=== PATIENT | female | born 1980 | race Two or more races ===

== ENCOUNTER 2020-10-10 06:24 | Inpatient (IN) ==
[2020-10-10] MEDS ORDERED: D5 1/2 NS 1000 ML 1,000 ML IV ONE (06:36)
[2020-10-10] MEDS ORDERED: BETADINE SOLN ONE (06:36)
[2020-10-10] MEDS ORDERED: PITOCIN ONE (06:36)
[2020-10-10] MEDS ORDERED: D5 1/2 NS 1L W PITOCIN 20 UNITS/L 20 UNITS/1,000 ML BAG IV ONE (06:37)
[2020-10-10] MEDS ORDERED: D5LR 1L W PITOCIN 10 UNITS/L 10 UNITS/1,000 ML BAG IV ONE (06:37)
--- NOTE | 2020-10-10 07:08 | DR.OB ---
OB Quick Note - Assessment/Plan Assessment/Plan: L&D 10/10/20 at 7:00am S-No complaint. O-Afebrile,VSS DXL=585 with good LTV, +accel, no decel. CTX=occasional,mild CVX=1cm/50%/-1/VTX AROM with clear fluid. IUPC and FSE placed. A-IUP at 38 6/7 weeks for induction Oligohydramnios P-Begin pitocin induction Anticipate
[2020-10-10] MEDS ORDERED: STADOL INJ IVP PRN (07:41)
[2020-10-10] MEDS ORDERED: PHENERGAN INJ 25 MG IM PRN ×2 (07:41→14:58)
[2020-10-10] MEDS ORDERED: NUBAIN INJ 200 MG VIAL MULTIDOSE IVP PRN (07:41)
[2020-10-10] MEDS ORDERED: D5 1/2 NS 1000 ML 1,000 ML IV SCH (07:41)
[2020-10-10] MEDS ORDERED: PITOCIN IVP ONE (07:41)
[2020-10-10] MEDS ORDERED: D5LR 1L W PITOCIN 10 UNITS/L 10 UNITS/1,000 ML BAG IV PRN (07:41)
[2020-10-10] MEDS ORDERED: REGLAN INJ 10 MG VIAL IVP PRN ×3 (07:41→15:19)
[2020-10-10] MEDS ORDERED: MORPHINE SULFATE INJ 2 MG INJ IVP PRN (07:41)
[2020-10-10] MEDS ORDERED: STADOL INJ ONE (10:35)
[2020-10-10] MEDS ORDERED: LR 1000 ML IV 1,000 ML IV ONE ×2 (12:26→13:24)
--- NOTE | 2020-10-10 12:34 | DR.OB ---
OB Quick Note - Assessment/Plan Assessment/Plan: L&D 10/10/20 at 12:20pm Pitocin=18mu/min. S-No complaint except CTX. O-Afebrile,VSS CBO=190 with good LTV, +accel., no decel. CTX=q 1 1/2 min., about 45-55mmHg CVX=3cm/50%/-1 A-IUP at 38 6/7 weeks for induction Oligohydramnios P-Cont. pitocin induction Anticipate
[2020-10-10] MEDS ORDERED: NAROPIN EPIDURAL 0.2% 0 ML ONE (13:13)
[2020-10-10] MEDS ORDERED: ANCEF 1 GRAM IV PREMIX* 1 G/50 ML BAG IV ONE (13:24)
[2020-10-10] MEDS ORDERED: OFIRMEV IV 1000 MG VIAL 1,000 MG/100 ML VIAL IV ONE (13:28)
[2020-10-10] MEDS ORDERED: FENTANYL INJ 250 mcg ONE (13:28)
[2020-10-10] MEDS ORDERED: NS 1000 ML 1,000 ML ONE (13:28)
[2020-10-10] MEDS ORDERED: ROBINUL ONE (13:30)
[2020-10-10] MEDS ORDERED: DIPRIVAN VIAL ONE (13:30)
[2020-10-10] MEDS ORDERED: QUELICIN (OR ANECTINE) ONE (13:30)
[2020-10-10] MEDS ORDERED: ULTANE GAS IN ONE (13:30)
[2020-10-10] MEDS ORDERED: ZOFRAN INJ 4 MG VIAL ONE (13:30)
[2020-10-10] MEDS ORDERED: DECADRON INJ ONE (13:30)
[2020-10-10] MEDS ORDERED: NORCURON INJ 10 MG VIAL ONE (13:30)
[2020-10-10] MEDS ORDERED: XYLOCAINE 1 % (PLAIN) ONE (13:30)
[2020-10-10] MEDS ORDERED: VERSED ONE (13:30)
[2020-10-10] MEDS ORDERED: NEOSTIGMINE INJ ONE (13:30)
[2020-10-10] MEDS ORDERED: BENADRYL INJ 50 MG VIAL IVP PRN ×2 (14:58→15:19)
[2020-10-10] MEDS ORDERED: DILAUDID INJ IVP PRN (14:58)
[2020-10-10] MEDS ORDERED: ZOFRAN INJ 4 MG VIAL IVP PRN ×2 (14:58→15:19)
[2020-10-10] MEDS ORDERED: ADACEL or BOOSTRIX TDaP VACCINE IM ONE (15:19)
[2020-10-10] MEDS ORDERED: PERCOCET TAB 5/325 MG PO PRN (15:19)
[2020-10-10] MEDS ORDERED: NARCAN INJ IVP PRN (15:19)
[2020-10-10] MEDS ORDERED: D5 1/2 NS 1000 ML 1,000 ML with PITOCIN 20 UNITS IV SCH ×2 (15:19)
[2020-10-10] MEDS ORDERED: MORPHINE SULFATE PCA 30 MG IVP PRN (15:19)
[2020-10-10] MEDS ORDERED: TORADOL 30 MG VIAL IVP PRN (15:19)
[2020-10-10] MEDS ORDERED: MYLICON TAB 80 MG CHEW PO PRN (15:19)
[2020-10-10] MEDS ORDERED: DILAUDID INJ ONE (15:23)
[2020-10-10] MEDS: PERCOCET TAB 5/325 MG PO PRN (19:50)
[2020-10-10] MEDS: MORPHINE SULFATE INJ 2 MG INJ IVP PRN (21:00)
[2020-10-11] MEDS: PERCOCET TAB 5/325 MG PO PRN (02:40)
[2020-10-11] MEDS: MORPHINE SULFATE INJ 2 MG INJ IVP PRN (05:33)
[2020-10-11 06:21] LABS: HEMATOCRIT 30.3 % (36.0-47.0); HEMOGLOBIN 9.9 g/dL (12.0-16.0)
[2020-10-11] MEDS ORDERED: MYLICON TAB 80 MG CHEW PO PRN (08:08)
[2020-10-11] MEDS: PRENATAL PLUS PO SCH (08:24)
[2020-10-11] MEDS: COLACE CAP 100 MG PO SCH ×2 (10:38→20:15)
[2020-10-11] MEDS: BACTROBAN TOPICAL OINT TOP SCH ×2 (14:26→20:15)
[2020-10-11] MEDS: MOTRIN TAB 800 MG PO PRN (15:10)
[2020-10-12] MEDS: MOTRIN TAB 800 MG PO PRN (01:54)
[2020-10-12] MEDS: PERCOCET TAB 5/325 MG PO PRN (08:50)
[2020-10-12 08:55] VITALS: BP 117/68
[2020-10-12] MEDS: COLACE CAP 100 MG PO SCH (08:57)
[2020-10-12] MEDS: PRENATAL PLUS PO SCH (08:58)
[2020-10-12] MEDS ORDERED: ADACEL or BOOSTRIX TDaP VACCINE IM ONE (10:23)
== END 2020-10-12 10:45 | disposition home or self-care (01) | DRG 788 ==
LOC: LD 06:24 → MED/SURG 15:17
PROVIDERS: ADMIT Specialist; ATTEND Specialist
DX: Z37.0 Single live birth; Z3A.38 38 weeks gestation of pregnancy; O41.03X0 Oligohydramnios, third trimester, not applicable or unspecified; O77.8 Labor and delivery complicated by other evidence of fetal stress